=== PATIENT | female | born 1940 | race Caucasian/White ===

== ENCOUNTER 2017-08-21 08:28 | Day surgery (SDC) | payer OTHER ==
[~2017-08-21] VITALS: Ht 162.6 cm; Wt 67.0 kg
[~2017-08-21 08:28] MED LIST: COREG25 M1 PO; GABAPENTIN300 MG PO; KRILL OIL 1,001 EACH PO; LISINOPRIL5 MG PO; MIRALAX119 GM PO; NITROSTAT0.4 MG SL; PRILOSEC20 MG PO; RANITIDINE HCL300 M1 PO; TRAMADOL HCL50 MG PO; VITAMIN B-121000 MC3 PO; VITAMIN D32000 UNI1 PO; XANAX0.5 MG PO
== END 2017-08-21 15:41 | disposition home or self-care (01) ==
LOC: CATH 08:28
DX: R07.9 Chest pain, unspecified (principal); I34.0 Nonrheumatic mitral (valve) insufficiency; R00.2 Palpitations; R06.02 Shortness of breath; I10 Essential (primary) hypertension; E78.2 Mixed hyperlipidemia; Z90.49 Acquired absence of other specified parts of digestive tract; Z90.710 Acquired absence of both cervix and uterus; Z85.828 Personal history of other malignant neoplasm of skin; M19.90 Unspecified osteoarthritis, unspecified site; M45.7 Ankylosing spondylitis of lumbosacral region; Z86.010 Personal history of colon polyps
CPT/HCPCS: 93005; C1769; C1887; J1200; J1644; J2250; J2405; J7040